=== PATIENT | male | born 1930 | race Caucasian/White ===

== ENCOUNTER 2020-06-20 19:06 | Emergency (ER) | payer MEDICARE, MEDICAID ==
[~2020-06-20] VITALS: Ht 172.7 cm; Wt 81.8 kg
[~2020-06-20 19:06] MED LIST: ASPI-1264 PO; ATOR20TA PO; CAR30T PO; DIGO250T PO; GLIM4TAB7 PO; GLYB-97 PO; LANTUS SQ; LISI-232 PO
[2020-06-20] MEDS ORDERED: gabapentin 300mg capsule PO ONE (20:05)
[2020-06-20] MEDS ORDERED: GABA300C PO (20:15)
[2020-06-20 20:49] VITALS: BP 178/88
== END 2020-06-20 20:52 | disposition home or self-care (01) ==
LOC: ER 19:07
DX: B02.9 Zoster without complications (principal); R07.81 Pleurodynia; E11.9 Type 2 diabetes mellitus without complications; I49.9 Cardiac arrhythmia, unspecified; Z88.5 Allergy status to narcotic agent; Z79.899 Other long term (current) drug therapy; Z79.82 Long term (current) use of aspirin; Z79.84 Long term (current) use of oral hypoglycemic drugs
CPT/HCPCS: 99284

== ENCOUNTER 2021-12-10 16:18 | Inpatient (IN) | payer MEDICARE, MEDICAID ==
[~2021-12-10] VITALS: Ht 170.2 cm; Wt 82.7 kg
[~2021-12-10 16:18] MED LIST changes: +GABA300C PO
[2021-12-10 19:17] LABS: BASOPHILS % (AUTO) 0.4 % (0-1); EOSINOPHILS # (AUTO) 0.3 X10'3 (0-0.9); EOSINOPHILS % (AUTO) 4.9 % (0-6); HEMATOCRIT 42.5 % (42.0-52.0); HEMOGLOBIN 14.2 g/dl (14.0-17.9); LYMPHOCYTES # (AUTO) 2.2 X10'3 (1.1-4.8); LYMPHOCYTES % (AUTO) 32.1 % (21-51); MEAN CORPUSCULAR HEMOGLOBIN 30.5 PG (27.0-31.0); MEAN CORPUSCULAR HGB CONC 33.5 g/dL (33.0-36.5); MEAN CORPUSCULAR VOLUME 90.9 FL (78-98); MEAN PLATELET VOLUME 8.7 FL (7.4-10.4); MONOCYTES # (AUTO) 0.8 X10'3 (0-0.9); MONOCYTES % (AUTO) 11.6 % (2-12); NEUTROPHILS # (AUTO) 3.4 X10'3 (1.8-7.7); PLATELET COUNT 155 X10'3 (140-440); RED BLOOD COUNT 4.68 X10'6 (4.70-6.10); RED CELL DISTRIBUTION WIDTH 15.1 % (11.5-14.5); WHITE BLOOD COUNT 6.7 X10'3 (4.5-11.0)
[2021-12-10 19:31] LABS: APTT 27 SECONDS (22-32)
[2021-12-10 19:32] LABS: ALANINE AMINOTRANSFERASE 19 U/L (12-78); ALBUMIN 3.4 G/DL (3.4-5.0); ALKALINE PHOSPHATASE 60 IU/L (46-116); ANION GAP 11 (8-16); ASPARTATE AMINO TRANSFERASE 13 U/L (10-37); BILIRUBIN,TOTAL 0.3 MG/DL (0.1-1.0); BLOOD UREA NITROGEN 34 MG/DL (7-18); CALCIUM 8.5 MG/DL (8.5-10.1); CHLORIDE 105 MMOL/L (99-107); GLUCOSE 237 MG/DL (70-104); POTASSIUM 4.7 MMOL/L (3.5-5.1); SODIUM 141 MMOL/L (135-145); TOTAL CARBON DIOXIDE 24.8 MMOL/L (24-32); TOTAL PROTEIN 6.9 G/DL (6.4-8.2); eGFR 32 ML/MIN
--- NOTE | 2021-12-10 21:54 | NUR ---
INFORMED MD ABOUT PT ELEVATED BP, AWAITING NEW ORDERS
[2021-12-10] MEDS ORDERED: heparin 10,000 units/1 ML INJ IV PRN (23:00)
[2021-12-10] MEDS ORDERED: heparin 10,000 units/1 ML INJ IV ONE ×2 (23:00→23:05)
[2021-12-10] MEDS: heparin 25,000 UNIT/250ml bag 250 ML IV SCH (23:44)
[2021-12-11] MEDS ORDERED: SYN0.088T PO (00:13)
[2021-12-11] MEDS ORDERED: METO25TA6 PO (00:13)
[2021-12-11] MEDS ORDERED: LISI20TA28 PO (00:13)
[2021-12-11] MEDS ORDERED: ASPI-529 PO (00:13)
[2021-12-11] MEDS ORDERED: GABA250S2 PO (01:15)
[2021-12-11] MEDS ORDERED: acetaminophen 325mg tablet PO PRN (01:15)
[2021-12-11] MEDS ORDERED: PERFLUTREN PROTEIN-A MICROSPHR (Optison) 0.22 MG/ML 3ML VIAL IV PRN (01:15)
[2021-12-11] MEDS ORDERED: magnesium 4gm in 100ml NS 100 ML IV PRN (01:15)
[2021-12-11] MEDS ORDERED: magnesium hydroxide 30ml (MOM) UD suspension PO PRN (01:15)
[2021-12-11] MEDS ORDERED: magnesium Cl slow-release 64mg tablet PO PRN (01:15)
[2021-12-11] MEDS ORDERED: mag hydrox/Alum hydrox/simeth 30ml oral suspension PO PRN (01:15)
[2021-12-11] MEDS ORDERED: LEVO50TA8 PO (01:15)
[2021-12-11] MEDS ORDERED: potassium CL 10mEq/100ml bag 100 ML IV PRN (01:15)
[2021-12-11] MEDS ORDERED: MULT-1085 PO (01:15)
[2021-12-11] MEDS ORDERED: magnesium 2GM in 50ml NS 50 ML IV PRN (01:15)
[2021-12-11] MEDS ORDERED: DOCU100C40 PO (01:15)
[2021-12-11] MEDS ORDERED: POTASSIUM BICARB 20meq eff tab 20 MEQ TABLET.EFF PO PRN ×2 (01:15)
[2021-12-11] MEDS ORDERED: ondansetron/PF 4mg/2ml inj IV PRN (01:15)
[2021-12-11] MEDS ORDERED: DEXTROSE 15 GM of carb/4 tabs (each vial/BOTTLE has 4 tablets) PO PRN ×2 (01:20)
[2021-12-11] MEDS ORDERED: dextrose 50%-water 50ml dispensing syringe IV PRN ×2 (01:20)
[2021-12-11] MEDS ORDERED: MESSAGE TO PHARMACY PO ONE (01:20)
[2021-12-11] MEDS ORDERED: glucagon, human recombinant 1mg kit SUBCUT PRN (01:20)
[2021-12-11] MEDS ORDERED: metoprolol tartrate 50mg tablet PO ONE (01:45)
--- NOTE | 2021-12-11 01:46 | NUR ---
INFORMED DR ALEJANDRO OF BP ELEVATION 226/105 Addendum: 12/11/21 at 0146 by ANAHY SEE CELESTE IZAGUIRRE
[2021-12-11] MEDS: sodium bicarbonate (8.4%) inj. 100 MEQ in dextrose 5%-water 1,000 ML IV SCH (05:15)
--- NOTE | 2021-12-11 06:30 | NUR ---
FIRST CONTACT WITH PT, FOUND SUPINE IN BED. HEPARIN AND BICARB GTT INFUSING. PTT REDRAWN AT THIS TIME D/T HEMOLYZED LAST DRAW. PT VSS, AWAITING BED ASSIGNMENT.
[2021-12-11] MEDS: K and/or MAG REPLACEMENT MC SCH ×2 (08:00→20:00)
[2021-12-11] MEDS ORDERED: insulin glargine (Lantus) pen - multi-dose SQ SCH ×2 (08:00→21:00)
[2021-12-11] MEDS: docusate sod 100mg capsule PO SCH ×4 (08:00→20:00)
[2021-12-11] MEDS ORDERED: aspirin 81mg, enteric-coated 1 TAB TABLET.DR PO SCH (08:00)
[2021-12-11] MEDS ORDERED: gabapentin 300mg capsule PO SCH (08:00)
[2021-12-11] MEDS ORDERED: gabapentin 100mg capsule PO SCH (08:00)
[2021-12-11] MEDS: multivitamins, therapeutics tablet PO SCH (08:00)
--- NOTE | 2021-12-11 08:17 | NUR ---
DAUGHTER CALLED, UPDATED GIVEN. WILL CALL BACK AT 1300 FOR ADDITIONAL UPDATES
[2021-12-11] MEDS: levoTHYROXINE 25mcg tablet PO SCH (08:45)
--- NOTE | 2021-12-11 08:49 | NUR ---
HEPARIN GTT STOPPED D/T PTT >[address] GENTILE MADE AWARE.
[2021-12-11] MEDS: metoprolol tartrate 25mg tablet PO SCH ×2 (08:51→20:02)
--- NOTE | 2021-12-11 09:13 | NUR ---
TELEPHONE REPORT TO ELHAM RUIZ
[2021-12-11 09:35] LABS: BASOPHILS % (AUTO) 0.5 % (0-1); EOSINOPHILS # (AUTO) 0.5 X10'3 (0-0.9); EOSINOPHILS % (AUTO) 5.8 % (0-6); HEMATOCRIT 45.2 % (42.0-52.0); LYMPHOCYTES # (AUTO) 2.5 X10'3 (1.1-4.8); LYMPHOCYTES % (AUTO) 29.9 % (21-51); MEAN CORPUSCULAR HEMOGLOBIN 30.2 PG (27.0-31.0); MEAN CORPUSCULAR HGB CONC 33.1 g/dL (33.0-36.5); MEAN CORPUSCULAR VOLUME 91.2 FL (78-98); MEAN PLATELET VOLUME 8.9 FL (7.4-10.4); MONOCYTES # (AUTO) 0.9 X10'3 (0-0.9); MONOCYTES % (AUTO) 10.5 % (2-12); NEUTROPHILS # (AUTO) 4.4 X10'3 (1.8-7.7); NEUTROPHILS % (AUTO) 53.3 % (42-75); PLATELET COUNT 149 X10'3 (140-440); RED BLOOD COUNT 4.96 X10'6 (4.70-6.10); RED CELL DISTRIBUTION WIDTH 15.1 % (11.5-14.5); WHITE BLOOD COUNT 8.3 X10'3 (4.5-11.0)
[2021-12-11 09:54] LABS: ALANINE AMINOTRANSFERASE 16 U/L (12-78); ALBUMIN 3.3 G/DL (3.4-5.0); ALBUMIN/GLOBULIN RATIO 0.9 (1.1-1.5); ALKALINE PHOSPHATASE 57 IU/L (46-116); ANION GAP 8 (8-16); ASPARTATE AMINO TRANSFERASE 16 U/L (10-37); BILIRUBIN,TOTAL 0.5 MG/DL (0.1-1.0); BLOOD UREA NITROGEN 27 MG/DL (7-18); CALCIUM 9.2 MG/DL (8.5-10.1); CHLORIDE 106 MMOL/L (99-107); CREATININE 1.69 MG/DL (0.60-1.10); GLUCOSE 168 MG/DL (70-104); MAGNESIUM 2.2 MG/DL (1.5-2.4); POTASSIUM 5.1 MMOL/L (3.5-5.1); SODIUM 143 MMOL/L (135-145); TOTAL CARBON DIOXIDE 29.3 MMOL/L (24-32); TOTAL PROTEIN 7.1 G/DL (6.4-8.2); eGFR 38 ML/MIN
[2021-12-11 09:57] LABS: HEMOGLOBIN A1C 7.2 % (4.5-6.2)
[2021-12-11 11:00] VITALS: BP 144/89
--- NOTE | 2021-12-11 11:53 | NUR ---
Diabetes consult: Noted pt w/ hx of DM A1c 7.2. Written DM ed w/ RD contact info placed in pt chart. Pt admitted w/ PAD per EMR. Currently on Clear liquids pending PO. Noted w/ LLE 1+ edema though no wounds. Pending BM this admit. Recommend Advancing to Regular diet when appropriate. will continue to monitor. Addendum: 12/11/21 at [address] Amended: Links added.
[2021-12-11] MEDS: heparin 25,000 UNIT/250ml bag 250 ML IV SCH (12:00)
[2021-12-11] MEDS ORDERED: midazolam 1 mg/ML 2ml injection ONE (13:43)
[2021-12-11] MEDS ORDERED: LIDOcaine 1%/PF 5ML 10 MG/ML VIAL ONE (13:43)
[2021-12-11] MEDS ORDERED: fentaNYL/PF 50MCG/1 ML 2ML syringe ONE (13:43)
[2021-12-11] MEDS ORDERED: heparin 1,000 UNITS/NS 500ml 500 ML ONE (13:43)
[2021-12-11] MEDS ORDERED: iohexol 300 MG/1 ML 50ml polymer ONE ×3 (13:44→15:29)
[2021-12-11] MEDS ORDERED: diphenhydrAMINE 50 mg/ml inj ONE (14:12)
[2021-12-11] MEDS ORDERED: hydrALAZINE 20mg/ml inj. IV ONE (14:25)
[2021-12-11] MEDS: normal saline 1000ml 1,000 ML IV SCH (16:00)
[2021-12-11] MEDS: clopidogrel 75mg tablet PO SCH (17:00)
[2021-12-11] MEDS ORDERED: HYDROcodone/acetaminophen 5mg/325mg tablet PO PRN (18:55)
[2021-12-11 19:54] VITALS: BP 182/87
[2021-12-11] MEDS: insulin Lispro (HumaLOG) vial - multi-dose SQ SCH (19:57)
[2021-12-12] MEDS ORDERED: gabapentin 100mg capsule PO ONE (00:50)
[2021-12-12 02:00] VITALS: BP 133/93
[2021-12-12] MEDS: normal saline 1000ml 1,000 ML IV SCH (05:21)
[2021-12-12 06:00] VITALS: BP 191/89
[2021-12-12 06:33] LABS: BASOPHILS % (AUTO) 0.4 % (0-1); EOSINOPHILS # (AUTO) 0.1 X10'3 (0-0.9); HEMATOCRIT 44.9 % (42.0-52.0); HEMOGLOBIN 15.2 g/dl (14.0-17.9); LYMPHOCYTES # (AUTO) 1.7 X10'3 (1.1-4.8); LYMPHOCYTES % (AUTO) 15.9 % (21-51); MEAN CORPUSCULAR HEMOGLOBIN 30.3 PG (27.0-31.0); MEAN CORPUSCULAR HGB CONC 33.8 g/dL (33.0-36.5); MEAN CORPUSCULAR VOLUME 89.5 FL (78-98); MEAN PLATELET VOLUME 8.6 FL (7.4-10.4); MONOCYTES % (AUTO) 9.3 % (2-12); NEUTROPHILS # (AUTO) 7.8 X10'3 (1.8-7.7); NEUTROPHILS % (AUTO) 73.4 % (42-75); PLATELET COUNT 136 X10'3 (140-440); RED BLOOD COUNT 5.01 X10'6 (4.70-6.10); RED CELL DISTRIBUTION WIDTH 14.8 % (11.5-14.5); WHITE BLOOD COUNT 10.6 X10'3 (4.5-11.0)
[2021-12-12 06:58] LABS: ALANINE AMINOTRANSFERASE 13 U/L (12-78); ALBUMIN 3.1 G/DL (3.4-5.0); ALBUMIN/GLOBULIN RATIO 0.9 (1.1-1.5); ALKALINE PHOSPHATASE 62 IU/L (46-116); ANION GAP 10 (8-16); ASPARTATE AMINO TRANSFERASE 15 U/L (10-37); BILIRUBIN,TOTAL 0.8 MG/DL (0.1-1.0); BLOOD UREA NITROGEN 23 MG/DL (7-18); CALCIUM 8.2 MG/DL (8.5-10.1); CHLORIDE 104 MMOL/L (99-107); CREATININE 1.64 MG/DL (0.60-1.10); GLUCOSE 194 MG/DL (70-104); POTASSIUM 4.3 MMOL/L (3.5-5.1); SODIUM 138 MMOL/L (135-145); TOTAL CARBON DIOXIDE 23.8 MMOL/L (24-32); TOTAL PROTEIN 6.5 G/DL (6.4-8.2); eGFR 40 ML/MIN
[2021-12-12] MEDS ORDERED: gabapentin 300mg capsule PO SCH (08:00)
[2021-12-12] MEDS ORDERED: gabapentin 100mg capsule PO SCH (08:00)
[2021-12-12] MEDS: docusate sod 100mg capsule PO SCH ×2 (08:00→09:31)
[2021-12-12] MEDS: K and/or MAG REPLACEMENT MC SCH (08:00)
[2021-12-12] MEDS: clopidogrel 75mg tablet PO SCH (09:24)
[2021-12-12] MEDS: levoTHYROXINE 25mcg tablet PO SCH (09:24)
[2021-12-12] MEDS ORDERED: aspirin 81mg, enteric-coated 1 TAB TABLET.DR PO SCH (09:29)
[2021-12-12] MEDS: metoprolol tartrate 25mg tablet PO SCH (09:31)
[2021-12-12] MEDS: multivitamins, therapeutics tablet PO SCH (09:33)
[2021-12-12] MEDS ORDERED: hydrALAZINE 20mg/ml inj. IV PRN (09:55)
[2021-12-12 10:32] VITALS: BP 112/63
--- NOTE | 2021-12-12 10:33 | NUR ---
Repeat BP 112/63. Patient reported relief of pain after the Spencer was given. No need for IV Hydralazine at this time.
[2021-12-12 11:00] VITALS: BP 146/59
[2021-12-12] MEDS: sodium bicarbonate (8.4%) inj. 100 MEQ in dextrose 5%-water 1,000 ML IV SCH (14:09)
[2021-12-12] MEDS: insulin Lispro (HumaLOG) vial - multi-dose SQ SCH (14:12)
--- NOTE | 2021-12-12 14:51 | NUR ---
PAGER ID: [phone] MESSAGE: [email or web address], KARY REPORT IS UP
[2021-12-12 15:00] VITALS: BP 151/82
[2021-12-12] MEDS ORDERED: CLOP75TA34 PO (15:09)
--- NOTE | 2021-12-12 15:33 | NUR ---
Left message to the daughter France regarding the need to picker new prescription at [facility] in [place] and that we are working on discharging the patient today. I gave her the call back number of PCU
--- NOTE | 2021-12-12 15:42 | NUR ---
Discussed with patient the need to have the prescription for Plavix before we discharge him and that him or his daughter has to show it to us as our new protocol. I checked on [facility] [employer] the closing time for [facility] pharmacy in [place], it said they closed at 09;00 pm today. Patient told me that his daughter is working today and will get off by 5:00 pm. Charge nurse Ysabel notified about the late discharge time.
--- NOTE | 2021-12-12 16:22 | NUR ---
Daughter France called me back, she said she live in [place] so she cannot come but she has sister Blaire who lives locally. She said she will call Blaire to let her know that there is medication from [facility] pharmacy to be picker before discharging the patient.
--- NOTE | 2021-12-12 16:52 | NUR ---
Spoke to the sister Blaire on the phone. She sound upset about her sister France being involved on this. She asked me how did I got in touch with France and I told her that France's name was in our system as the customer contact representative so that's why I called her. Blaire told me "she should not be in involved on this, I am the POA. France don't even care about my dad!"
--- NOTE | 2021-12-12 17:42 | NUR ---
Patient's daughter Blaire came here and showed me the filled prescription for Plavix
--- NOTE | 2021-12-12 18:08 | NUR ---
Discharge instructions given to patient and his daughter Blaire present at bedside. Peripheral IV catheter removed, tip intact. Bleeding precaution discussed with patient and the daughter including the importance of taking the Plavix and follow up appointment with Dr. Lara. Patient and daughter both verbalized understanding of all instructions given. Patient instructed to ensure he has all his belongings with him.
== END 2021-12-12 18:21 | disposition home or self-care (01) | DRG 252 ==
LOC: ER 16:18 → ED HOLD 12-11 01:17 → PCU 3S 12-11 09:30
PROVIDERS: ADMIT Internal Medicine; ATTEND Family Medicine
PROC: 047L3DZ Dilation of Left Femoral Artery with Intraluminal Device, Percutaneous Approach (ICD-10-PCS; principal; 2021-12-11)
PROC: 047H3DZ Dilation of Right External Iliac Artery with Intraluminal Device, Percutaneous Approach (ICD-10-PCS; 2021-12-11)
PROC: B41G1ZZ Fluoroscopy of Left Lower Extremity Arteries using Low Osmolar Contrast (ICD-10-PCS; 2021-12-11)
PROC: B41C1ZZ Fluoroscopy of Pelvic Arteries using Low Osmolar Contrast (ICD-10-PCS; 2021-12-11)
DX: E11.51 Type 2 diabetes mellitus with diabetic peripheral angiopathy without gangrene (principal); N17.0 Acute kidney failure with tubular necrosis; I70.213 Atherosclerosis of native arteries of extremities with intermittent claudication, bilateral legs; E11.22 Type 2 diabetes mellitus with diabetic chronic kidney disease; N18.9 Chronic kidney disease, unspecified; I25.10 Atherosclerotic heart disease of native coronary artery without angina pectoris; E03.9 Hypothyroidism, unspecified; I12.9 Hypertensive chronic kidney disease with stage 1 through stage 4 chronic kidney disease, or unspecified chronic kidney disease; K59.00 Constipation, unspecified; Z79.02 Long term (current) use of antithrombotics/antiplatelets; Z88.5 Allergy status to narcotic agent; Z79.4 Long term (current) use of insulin; Z79.82 Long term (current) use of aspirin; Z79.899 Other long term (current) drug therapy; Z85.828 Personal history of other malignant neoplasm of skin; Z95.1 Presence of aortocoronary bypass graft
CPT/HCPCS: 36415; 37223; 37226; 80053; 82948; 83036; 83735; 85025; 85610; 85730; 93005; 93306; 93922; 93926; 93971; 99291; A6213; C1725; C1760; C1769; C1876; C1887; C1894; G0378; J0360; J1200; J1644; J1815; J2250; J3010; J3490; J7030; J7070; Q9967

== ENCOUNTER 2022-01-19 07:35 | Inpatient (IN) | payer MEDICARE, OTHER ==
[~2022-01-19] VITALS: Ht 172.7 cm; Wt 74.7 kg
[~2022-01-19 07:35] MED LIST changes: -ASPI-1264 PO; +ASPI-529 PO; -ATOR20TA PO; -CAR30T PO; +CLOP75TA34 PO; -DIGO250T PO; +DOCU100C40 PO; +GABA250S2 PO; -GABA300C PO; -GLIM4TAB7 PO; -GLYB-97 PO; +LEVO50TA8 PO; -LISI-232 PO; +LISI20TA28 PO; +METO25TA6 PO; +MULT-1085 PO
[2022-01-19] MEDS ORDERED: iohexol 350MG/ML 100ml bottle IV ONE (07:48)
--- NOTE | 2022-01-19 07:50 | NUR ---
to/from ct without incident.
[2022-01-19 07:53] LABS: BASOPHILS # (AUTO) 0.1 X10'3 (0-0.2); BASOPHILS % (AUTO) 1.4 % (0-1); EOSINOPHILS # (AUTO) 0.2 X10'3 (0-0.9); EOSINOPHILS % (AUTO) 2.9 % (0-6); HEMATOCRIT 41.3 % (42.0-52.0); HEMOGLOBIN 13.8 g/dl (14.0-17.9); LYMPHOCYTES # (AUTO) 0.6 X10'3 (1.1-4.8); LYMPHOCYTES % (AUTO) 9.9 % (21-51); MEAN CORPUSCULAR HEMOGLOBIN 29.4 PG (27.0-31.0); MEAN CORPUSCULAR HGB CONC 33.3 g/dL (33.0-36.5); MEAN CORPUSCULAR VOLUME 88.2 FL (78-98); MEAN PLATELET VOLUME 8.6 FL (7.4-10.4); MONOCYTES # (AUTO) 0.4 X10'3 (0-0.9); MONOCYTES % (AUTO) 6.7 % (2-12); NEUTROPHILS # (AUTO) 4.7 X10'3 (1.8-7.7); NEUTROPHILS % (AUTO) 79.1 % (42-75); PLATELET COUNT 136 X10'3 (140-440); RED BLOOD COUNT 4.68 X10'6 (4.70-6.10); RED CELL DISTRIBUTION WIDTH 14.4 % (11.5-14.5); WHITE BLOOD COUNT 5.9 X10'3 (4.5-11.0)
--- NOTE | 2022-01-19 08:02 | NUR ---
xray at bedside. daughter at bedside, updated on poc and pt status.
[2022-01-19 08:22] LABS: ALANINE AMINOTRANSFERASE 18 U/L (12-78); ALBUMIN 3.1 G/DL (3.4-5.0); ALBUMIN/GLOBULIN RATIO 0.8 (1.1-1.5); ALKALINE PHOSPHATASE 60 IU/L (46-116); ANION GAP 14 (8-16); ASPARTATE AMINO TRANSFERASE 19 U/L (10-37); BILIRUBIN,TOTAL 0.8 MG/DL (0.1-1.0); BLOOD UREA NITROGEN 24 MG/DL (7-18); BUN/CREATININE RATIO 14.7 (5.4-32.0); CALCIUM 8.7 MG/DL (8.5-10.1); CHLORIDE 104 MMOL/L (99-107); CREATININE 1.63 MG/DL (0.60-1.10); GLUCOSE 276 MG/DL (70-104); SODIUM 142 MMOL/L (135-145); TOTAL CARBON DIOXIDE 23.6 MMOL/L (24-32); TOTAL PROTEIN 6.9 G/DL (6.4-8.2); eGFR 40 ML/MIN
[2022-01-19 09:36] LABS: APTT 29 SECONDS (22-32)
--- NOTE | 2022-01-19 10:32 | NUR ---
SPOKE WITH DR BARROW REGARDING SYSTOLIC BPS (180'S-190). MD AWARE AND TO SPEAK WITH NEUROLOGIST.
[2022-01-19] MEDS ORDERED: mag hydrox/Alum hydrox/simeth 30ml oral suspension PO PRN (10:55)
[2022-01-19] MEDS ORDERED: magnesium 2GM in 50ml NS 50 ML IV PRN (10:55)
[2022-01-19] MEDS ORDERED: DEXTROSE 15 GM of carb/4 tabs (each vial/BOTTLE has 4 tablets) PO PRN ×2 (10:55)
[2022-01-19] MEDS ORDERED: POTASSIUM BICARB 20meq eff tab 20 MEQ TABLET.EFF PO PRN ×2 (10:55)
[2022-01-19] MEDS ORDERED: ondansetron/PF 4mg/2ml inj IV PRN (10:55)
[2022-01-19] MEDS ORDERED: glucagon, human recombinant 1mg kit SUBCUT PRN (10:55)
[2022-01-19] MEDS ORDERED: dextrose 50%-water 50ml dispensing syringe IV PRN ×2 (10:55)
[2022-01-19] MEDS ORDERED: magnesium 4gm in 100ml NS 100 ML IV PRN (10:55)
[2022-01-19] MEDS ORDERED: acetaminophen 325mg tablet PO PRN (10:55)
[2022-01-19] MEDS ORDERED: MESSAGE TO PHARMACY PO ONE (10:55)
[2022-01-19] MEDS ORDERED: magnesium hydroxide 30ml (MOM) UD suspension PO PRN (10:55)
[2022-01-19] MEDS ORDERED: potassium CL 10mEq/100ml bag 100 ML IV PRN (10:55)
[2022-01-19] MEDS ORDERED: CLOP75TA33 PO (11:45)
--- NOTE | 2022-01-19 12:15 | NUR ---
Called report to Gabriela in PCU. Pt to transfer. Awaiting MRI.
[2022-01-19 12:30] VITALS: BP 213/109
--- NOTE | 2022-01-19 13:31 | NUR ---
PAGER ID: [phone] MESSAGE: Room: 1686B: Rosa: This pt states that he is claustrophobic. Can I please get an order for ativan to give him prior to his head MRI? ELHAM Ochoa [phone]
[2022-01-19] MEDS ORDERED: LORazepam 2 mg/ml vial IV ONE (13:35)
--- NOTE | 2022-01-19 13:40 | NUR ---
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 Pt A1C 7.2% 12/02/21 recent prior admit received RD education at that time per EMR. Pt DX this admit acute CVA w/ CHASSIS INSPECTOR recommending MM5 diet per EMR. Noted carb controlled restricted diet now added as well. Will monitor for PO trends and nutrition intervention needs this admit. IF PO inadequate would benefit from removal of carb controlled restriction given age. Addendum: 01/19/22 at [address] Amended: Links added.
[2022-01-19] MEDS: insulin Lispro (HumaLOG) vial - multi-dose SQ SCH ×2 (14:03→19:00)
[2022-01-19] MEDS: GABAPENTIN PO SCH ×2 (14:48→20:01)
[2022-01-19 15:00] VITALS: BP 144/83
[2022-01-19 18:00] VITALS: BP 177/79
[2022-01-19] MEDS: K and/or MAG REPLACEMENT MC SCH (19:57)
[2022-01-19] MEDS: docusate sod 100mg capsule PO SCH (20:00)
[2022-01-19] MEDS: enoxaparin 40mg/0.4ml syringe SQ SCH (20:02)
[2022-01-19] MEDS: insulin glargine (Lantus) pen - multi-dose SQ SCH (21:11)
[2022-01-19 22:00] VITALS: BP 166/98
--- NOTE | 2022-01-19 22:36 | NUR ---
Spoke to patient's Bernadette over the phone. All questions answered. Updated her on plan of care
[2022-01-20 02:00] VITALS: BP 187/88
[2022-01-20 06:00] VITALS: BP 216/101
--- NOTE | 2022-01-20 06:12 | NUR ---
Change of shift report given to RN Gabriela. Issues reprioritized. patient stable. No acute complaints
[2022-01-20 06:49] LABS: BASOPHILS % (AUTO) 0.5 % (0-1); EOSINOPHILS # (AUTO) 0.3 X10'3 (0-0.9); EOSINOPHILS % (AUTO) 4.9 % (0-6); HEMOGLOBIN 14.2 g/dl (14.0-17.9); LYMPHOCYTES # (AUTO) 1.4 X10'3 (1.1-4.8); LYMPHOCYTES % (AUTO) 26.6 % (21-51); MEAN CORPUSCULAR HEMOGLOBIN 29.5 PG (27.0-31.0); MEAN CORPUSCULAR HGB CONC 33.8 g/dL (33.0-36.5); MEAN CORPUSCULAR VOLUME 87.5 FL (78-98); MEAN PLATELET VOLUME 8.4 FL (7.4-10.4); MONOCYTES # (AUTO) 0.8 X10'3 (0-0.9); MONOCYTES % (AUTO) 15.6 % (2-12); NEUTROPHILS # (AUTO) 2.7 X10'3 (1.8-7.7); NEUTROPHILS % (AUTO) 52.4 % (42-75); PLATELET COUNT 160 X10'3 (140-440); RED CELL DISTRIBUTION WIDTH 14.3 % (11.5-14.5); WHITE BLOOD COUNT 5.2 X10'3 (4.5-11.0)
[2022-01-20 06:54] LABS: CHOL/HDL RATIO 5.2 (0.00-4.99); CHOLESTEROL 220 MG/DL (0-200); HDL CHOLESTEROL 42 MG/DL (35-60); LDL CHOLESTEROL 147 MG/DL (50-100); MAGNESIUM 1.8 MG/DL (1.5-2.4); TRIGLYCERIDES 94 MG/DL (20-135)
[2022-01-20] MEDS: K and/or MAG REPLACEMENT MC SCH ×2 (08:00→20:00)
[2022-01-20] MEDS: docusate sod 100mg capsule PO SCH ×2 (08:00→21:09)
[2022-01-20] MEDS ORDERED: aspirin 81mg, enteric-coated 1 TAB TABLET.DR PO SCH (08:00)
[2022-01-20 08:05] LABS: TOTAL CELLS COUNTED 100
[2022-01-20 08:06] LABS: PLATELET ESTIMATE NORMAL
[2022-01-20] MEDS: insulin Lispro (HumaLOG) vial - multi-dose SQ SCH ×4 (09:20→21:14)
[2022-01-20] MEDS: GABAPENTIN PO SCH ×3 (09:21→21:15)
[2022-01-20] MEDS: multivitamins, therapeutics tablet PO SCH (09:22)
[2022-01-20] MEDS: levoTHYROXINE 25mcg tablet PO SCH (09:22)
[2022-01-20] MEDS: clopidogrel 75mg tablet PO SCH (09:22)
[2022-01-20] MEDS: atorvastatin 20mg tablet PO SCH (09:23)
[2022-01-20 09:39] LABS: ALANINE AMINOTRANSFERASE 16 U/L (12-78); ALBUMIN 3.1 G/DL (3.4-5.0); ALBUMIN/GLOBULIN RATIO 0.8 (1.1-1.5); ALKALINE PHOSPHATASE 62 IU/L (46-116); ANION GAP 14 (8-16); ASPARTATE AMINO TRANSFERASE 17 U/L (10-37); BILIRUBIN,TOTAL 0.6 MG/DL (0.1-1.0); BLOOD UREA NITROGEN 25 MG/DL (7-18); BUN/CREATININE RATIO 14.5 (5.4-32.0); CALCIUM 8.9 MG/DL (8.5-10.1); CHLORIDE 101 MMOL/L (99-107); CREATININE 1.72 MG/DL (0.60-1.10); GLUCOSE 263 MG/DL (70-104); POTASSIUM 3.8 MMOL/L (3.5-5.1); SODIUM 138 MMOL/L (135-145); TOTAL CARBON DIOXIDE 23.1 MMOL/L (24-32); eGFR 38 ML/MIN
[2022-01-20 11:00] VITALS: BP 126/86
[2022-01-20] MEDS: nystatin 500,000 unit/5ML UD oral suspension PO SCH ×2 (13:27→21:09)
[2022-01-20 15:00] VITALS: BP 143/120
[2022-01-20] MEDS ORDERED: temazepam 15mg capsule PO PRN (16:25)
[2022-01-20 18:00] VITALS: BP 208/110
[2022-01-20] MEDS: pregabalin 75mg capsule PO SCH (21:09)
[2022-01-20] MEDS: enoxaparin 40mg/0.4ml syringe SQ SCH (21:09)
[2022-01-20] MEDS: insulin glargine (Lantus) pen - multi-dose SQ SCH (21:11)
[2022-01-20 22:00] VITALS: BP 143/84
[2022-01-20 22:56] LABS: D-DIMER 1.23 MG/L FEU (0-0.50)
[2022-01-20 23:19] LABS: ABG BASE EXCESS -1.7 mmol/L (-2.0-2.0); ABG OXYGEN SATURATION 95.6 % (94-97); ABG PCO2 (T) 29.8 mmHg (35.0-48.0); ALLEN'S TEST Modified; FCOHb 0.7 % (0.0-3.9); FLOW 2 L/min; FMetHb 0.3 % (0.0-1.5); FO2Hb 94.6 % (94-97); PATIENT TEMPERATURE 36.7; RESPIRATORY RATE 30 b/min; TOTAL HEMOGLOBIN 14.5 G/dl (14.0-18.0)
[2022-01-20] MEDS: ipratropium/albuterol 3ml nebule NEB PRN (23:27)
[2022-01-21 02:00] VITALS: BP 130/76
[2022-01-21] MEDS: ipratropium/albuterol 3ml nebule NEB PRN ×2 (03:45→08:12)
--- NOTE | 2022-01-21 06:52 | NUR ---
Patient in room PCU 3018. I have received report from GILDA LIZARRAGA and had the opportunity to ask questions and assume patient care.
[2022-01-21 06:57] LABS: BASOPHILS % (AUTO) 0.4 % (0-1); EOSINOPHILS # (AUTO) 0.3 X10'3 (0-0.9); EOSINOPHILS % (AUTO) 5.8 % (0-6); HEMATOCRIT 41.6 % (42.0-52.0); HEMOGLOBIN 14.1 g/dl (14.0-17.9); LYMPHOCYTES # (AUTO) 1.5 X10'3 (1.1-4.8); LYMPHOCYTES % (AUTO) 30.5 % (21-51); MEAN CORPUSCULAR HEMOGLOBIN 29.9 PG (27.0-31.0); MEAN CORPUSCULAR HGB CONC 33.8 g/dL (33.0-36.5); MEAN CORPUSCULAR VOLUME 88.3 FL (78-98); MEAN PLATELET VOLUME 8.3 FL (7.4-10.4); MONOCYTES # (AUTO) 0.8 X10'3 (0-0.9); MONOCYTES % (AUTO) 15.7 % (2-12); NEUTROPHILS # (AUTO) 2.4 X10'3 (1.8-7.7); NEUTROPHILS % (AUTO) 47.6 % (42-75); PLATELET COUNT 172 X10'3 (140-440); RED BLOOD COUNT 4.71 X10'6 (4.70-6.10); RED CELL DISTRIBUTION WIDTH 14.4 % (11.5-14.5)
[2022-01-21 07:00] VITALS: BP 161/75
[2022-01-21 07:18] LABS: ALANINE AMINOTRANSFERASE 15 U/L (12-78); ALBUMIN 2.8 G/DL (3.4-5.0); ALBUMIN/GLOBULIN RATIO 0.8 (1.1-1.5); ALKALINE PHOSPHATASE 57 IU/L (46-116); ANION GAP 11 (8-16); ASPARTATE AMINO TRANSFERASE 18 U/L (10-37); BILIRUBIN,TOTAL 0.4 MG/DL (0.1-1.0); BLOOD UREA NITROGEN 32 MG/DL (7-18); CALCIUM 9.1 MG/DL (8.5-10.1); CHLORIDE 102 MMOL/L (99-107); CREATININE 1.78 MG/DL (0.60-1.10); GLUCOSE 200 MG/DL (70-104); MAGNESIUM 2.1 MG/DL (1.5-2.4); POTASSIUM 4.7 MMOL/L (3.5-5.1); SODIUM 140 MMOL/L (135-145); TOTAL CARBON DIOXIDE 26.6 MMOL/L (24-32); TOTAL PROTEIN 6.4 G/DL (6.4-8.2); eGFR 36 ML/MIN
[2022-01-21] MEDS: K and/or MAG REPLACEMENT MC SCH ×2 (08:00→20:00)
[2022-01-21] MEDS: multivitamins, therapeutics tablet PO SCH (08:24)
[2022-01-21] MEDS: docusate sod 100mg capsule PO SCH ×2 (08:24→20:23)
[2022-01-21] MEDS: levoTHYROXINE 25mcg tablet PO SCH (08:25)
[2022-01-21] MEDS: clopidogrel 75mg tablet PO SCH (08:25)
[2022-01-21] MEDS: nystatin 500,000 unit/5ML UD oral suspension PO SCH ×3 (08:25→20:23)
[2022-01-21] MEDS: atorvastatin 20mg tablet PO SCH (08:25)
[2022-01-21] MEDS: pregabalin 75mg capsule PO SCH ×2 (08:25→20:23)
[2022-01-21] MEDS ORDERED: aspirin 81mg, enteric-coated 1 TAB TABLET.DR PO SCH (08:31)
[2022-01-21] MEDS: insulin Lispro (HumaLOG) vial - multi-dose SQ SCH ×3 (08:45→18:56)
[2022-01-21] MEDS: GABAPENTIN PO SCH ×2 (08:47→13:23)
[2022-01-21] MEDS: sertraline 25mg tablet PO SCH (08:47)
[2022-01-21 11:00] VITALS: BP 102/59
[2022-01-21 15:00] VITALS: BP 97/43
--- NOTE | 2022-01-21 17:59 | NUR ---
patient went for NM lung scan see results. SOB at times o2 sats 96% on 2L NC. No new changes with regards neuro checks . Seen by Dr melendez , and stroke nurse Luke LIZARRAGA. Heart rhythm aflutter/ afib. Dr melendez aware. will continue to monitor
[2022-01-21 18:00] VITALS: BP 112/67
--- NOTE | 2022-01-21 18:13 | NUR ---
Problems reprioritized. Patient report given, questions answered & plan of care reviewed with Nicholas RN.
[2022-01-21] MEDS: apixaban 5mg tablet PO SCH (20:23)
[2022-01-21] MEDS: insulin glargine (Lantus) pen - multi-dose SQ SCH (21:11)
[2022-01-21 22:00] VITALS: BP 99/49
[2022-01-22 02:00] VITALS: BP 124/51
[2022-01-22 06:00] VITALS: BP 98/68
--- NOTE | 2022-01-22 06:53 | NUR ---
Patient in room PCU 3018. I have received report from ELHAM OLSEN, and had the opportunity to ask questions and assume patient care.
[2022-01-22 07:00] LABS: BASOPHILS % (AUTO) 0.3 % (0-1); EOSINOPHILS # (AUTO) 0.3 X10'3 (0-0.9); EOSINOPHILS % (AUTO) 4.8 % (0-6); HEMATOCRIT 42.3 % (42.0-52.0); HEMOGLOBIN 14.2 g/dl (14.0-17.9); LYMPHOCYTES # (AUTO) 1.7 X10'3 (1.1-4.8); LYMPHOCYTES % (AUTO) 25.6 % (21-51); MEAN CORPUSCULAR HEMOGLOBIN 29.4 PG (27.0-31.0); MEAN CORPUSCULAR HGB CONC 33.6 g/dL (33.0-36.5); MEAN CORPUSCULAR VOLUME 87.4 FL (78-98); MEAN PLATELET VOLUME 8.5 FL (7.4-10.4); MONOCYTES % (AUTO) 14.8 % (2-12); NEUTROPHILS # (AUTO) 3.6 X10'3 (1.8-7.7); NEUTROPHILS % (AUTO) 54.5 % (42-75); PLATELET COUNT 181 X10'3 (140-440); RED BLOOD COUNT 4.84 X10'6 (4.70-6.10); RED CELL DISTRIBUTION WIDTH 14.4 % (11.5-14.5); WHITE BLOOD COUNT 6.5 X10'3 (4.5-11.0)
[2022-01-22 07:50] LABS: ALANINE AMINOTRANSFERASE 15 U/L (12-78); ALBUMIN 2.7 G/DL (3.4-5.0); ALBUMIN/GLOBULIN RATIO 0.7 (1.1-1.5); ALKALINE PHOSPHATASE 54 IU/L (46-116); ANION GAP 15 (8-16); ASPARTATE AMINO TRANSFERASE 19 U/L (10-37); BILIRUBIN,TOTAL 0.5 MG/DL (0.1-1.0); BLOOD UREA NITROGEN 40 MG/DL (7-18); BUN/CREATININE RATIO 20.2 (5.4-32.0); CALCIUM 9.2 MG/DL (8.5-10.1); CHLORIDE 103 MMOL/L (99-107); CREATININE 1.98 MG/DL (0.60-1.10); GLUCOSE 209 MG/DL (70-104); POTASSIUM 4.1 MMOL/L (3.5-5.1); SODIUM 141 MMOL/L (135-145); TOTAL CARBON DIOXIDE 22.6 MMOL/L (24-32); TOTAL PROTEIN 6.4 G/DL (6.4-8.2); eGFR 32 ML/MIN
[2022-01-22] MEDS ORDERED: clopidogrel 75mg tablet PO SCH (08:00)
[2022-01-22] MEDS: nystatin 500,000 unit/5ML UD oral suspension PO SCH ×2 (08:00→13:22)
[2022-01-22] MEDS: docusate sod 100mg capsule PO SCH (08:00)
[2022-01-22] MEDS: K and/or MAG REPLACEMENT MC SCH (08:00)
[2022-01-22] MEDS: ipratropium/albuterol 3ml nebule NEB PRN (08:52)
[2022-01-22] MEDS: insulin Lispro (HumaLOG) vial - multi-dose SQ SCH ×2 (09:05→13:29)
[2022-01-22] MEDS: levoTHYROXINE 25mcg tablet PO SCH (09:07)
[2022-01-22] MEDS: atorvastatin 20mg tablet PO SCH (09:07)
[2022-01-22] MEDS: sertraline 25mg tablet PO SCH (09:07)
[2022-01-22] MEDS: pregabalin 75mg capsule PO SCH (09:07)
[2022-01-22] MEDS: multivitamins, therapeutics tablet PO SCH (09:08)
[2022-01-22] MEDS: apixaban 5mg tablet PO SCH (09:08)
[2022-01-22 11:00] VITALS: BP 121/62
[2022-01-22] MEDS ORDERED: TEMA15CA5 PO (12:34)
[2022-01-22] MEDS ORDERED: LYR75C PO (12:34)
[2022-01-22 15:00] VITALS: BP 107/68
--- NOTE | 2022-01-22 16:09 | NUR ---
PT STABLE FOR TRANSFER PER MD. MULTIPLE ATTEMPTS WERE MADE TO HAND OFF PT TO [facility], WITH NO ONE ANSWERING THE PHONE. WHEN SOMEONE DID [employer], THE NURSE WASN'T AVAILABLE. FACESHEET WAS SENT WITH PACKET. TELE BOX REMOVED. BELONGINGS SENT WITH PT. FAMILY PHONED PER THEIR REQUEST. PIVS REMOVED WITH TIPS INTACT. PT WAS TRANSFERRED BY [facility].
== END 2022-01-22 16:04 | DRG 64 ==
LOC: ER 07:36 → ED HOLD 10:58 → EDBEDREQ 11:38 → PCU 3S 12:24
PROVIDERS: ADMIT Family Medicine; ATTEND Family Medicine
PROC: B3251ZZ Computerized Tomography (CT Scan) of Bilateral Common Carotid Arteries using Low Osmolar Contrast (ICD-10-PCS; 2022-01-19)
PROC: B32G1ZZ Computerized Tomography (CT Scan) of Bilateral Vertebral Arteries using Low Osmolar Contrast (ICD-10-PCS; 2022-01-19)
PROC: B32R1ZZ Computerized Tomography (CT Scan) of Intracranial Arteries using Low Osmolar Contrast (ICD-10-PCS; 2022-01-19)
PROC: B3281ZZ Computerized Tomography (CT Scan) of Bilateral Internal Carotid Arteries using Low Osmolar Contrast (ICD-10-PCS; 2022-01-19)
PROC: CB121ZZ Planar Nuclear Medicine Imaging of Lungs and Bronchi using Technetium 99m (Tc-99m) (ICD-10-PCS; principal; 2022-01-21)
DX: I63.9 Cerebral infarction, unspecified (principal); J96.00 Acute respiratory failure, unspecified whether with hypoxia or hypercapnia; G81.94 Hemiplegia, unspecified affecting left nondominant side; N18.9 Chronic kidney disease, unspecified; I65.01 Occlusion and stenosis of right vertebral artery; E03.9 Hypothyroidism, unspecified; I25.10 Atherosclerotic heart disease of native coronary artery without angina pectoris; Z66 Do not resuscitate; I48.91 Unspecified atrial fibrillation; I67.2 Cerebral atherosclerosis; R29.703 NIHSS score 3; I12.9 Hypertensive chronic kidney disease with stage 1 through stage 4 chronic kidney disease, or unspecified chronic kidney disease; F32.A Depression, unspecified; E11.42 Type 2 diabetes mellitus with diabetic polyneuropathy; R47.81 Slurred speech; R47.01 Aphasia; E11.51 Type 2 diabetes mellitus with diabetic peripheral angiopathy without gangrene; E11.22 Type 2 diabetes mellitus with diabetic chronic kidney disease; Z85.828 Personal history of other malignant neoplasm of skin; Z85.51 Personal history of malignant neoplasm of bladder; Z79.01 Long term (current) use of anticoagulants; Z79.02 Long term (current) use of antithrombotics/antiplatelets; Z79.4 Long term (current) use of insulin; Z79.82 Long term (current) use of aspirin; Z86.19 Personal history of other infectious and parasitic diseases; Z95.1 Presence of aortocoronary bypass graft; Z88.5 Allergy status to narcotic agent; Z79.899 Other long term (current) drug therapy
CPT/HCPCS: 36415; 36600; 70450; 70496; 70498; 70551; 71045; 78582; 80053; 80061; 82803; 82948; 83735; 84443; 85007; 85018; 85025; 85027; 85379; 85610; 85730; 87081; 92508; 92616; 93005; 93308; 94640; 94667; 94668; 94760; 97112; 97162; 97530; 99285; A4615; A9539; A9540; G0378; J1650; J1815; J2060; J3490; Q9967